=== PATIENT | female | born 1980 | race Caucasian/White ===

== ENCOUNTER 2016-05-02 12:49 | Emergency (ER) | payer OTHER ==
[~2016-05-02] VITALS: Ht 180.3 cm; Wt 72.7 kg
[2016-05-02 12:53] VITALS: BP 99/71; PULSE 106; RESP 18
--- NOTE | 2016-05-02 14:43 | DRSVH ---
PROCEDURE: X-RAY PELVIS W/LAT HIP (LT) ([id number]) INDICATIONS: Pain left hip and groin. TECHNIQUE: AP pelvis with lateral view(s) of the left hip(s). COMPARISON: None. FINDINGS: Bones: No fractures or dislocations. Pelvic ring appears intact. No suspicious bony lesions. Soft tissues: The visualized bowel gas pattern is normal. No suspicious soft tissue calcifications. IMPRESSION: No visualized acute fracture or dislocation. However, if clinical concern and/or pain pe rsist, short interval imaging followup in 7-10 days is recommended, as occult injury cannot be defini tively excluded. Dictated by: Larisa Carvalho M.D. on 05/02/2016 at 14:37 Approved by: Larisa Carvalho M.D. on 05/02/2016 at 14:37
[2016-05-02] MEDS ORDERED: CYCL10TA9 PO (16:08)
--- NOTE | 2016-05-02 16:08 | ED.REPORT ---
HPI-Extremity Problem Lower Date of Service May 02, 2016 ED Provider: Anuj Bowman PA-C Tosha is an otherwise healthy, active 36-year-old female with a chief complaint of left hip pain. She states her left hip pain insidiously began 2 days ago after a moderate exercise routine. Her pain worsened over the course of next day, which she spent at work doing significant amount of walking. Last night the pain kept her from sleeping well and today she feels unable to walk because "it feels like the leg is going to give out." She localizes her pain to her left groin, with radiation down her leg anterior and lateral as well as into her lower back. Denies back pain, saddle anesthesia, bowel/bladder dysfunction. Also denies abdominal pain, urinary symptoms, vomiting, diarrhea. Nursing Notes Stated Complaint: LEFT LEG/HIP PAIN, CANT WALK Chief Complaint: Extremity Trauma Allergies: Coded Allergies: No Known Allergies (Unverified , 05/02/16) Scheduled PRN Cyclobenzaprine (Cyclobenzaprine) 10 Mg Tablet 10 MG PO TID PRN PRN Spasm General Time Seen by MD: 13:37 Chief Complaint Hip injury left Review of Systems General: Denies fever, chills, malaise. HEENT: Denies congestion, headache, sore throat. Respiratory: Denies dyspnea, cough, shortness of breath, wheezing. Cardiovascular: Denies chest pain, palpitations. Gastrointestinal: Denies vomiting, diarrhea, abdominal pain. Genitourinary: Denies frequency, urgency, dysuria, hematuria. Otherwise as noted in HPI. Physical Exam General: Well appearing, well developed, well nourished, no acute distress. Head: Atraumatic, normocephalic. Eyes: No scleral icterus or injection. No discharge. Vision grossly intact. ENT: Voice clear, hearing grossly intact. Respiratory: Regular rate and rhythm. Breath sounds present, clear to auscultation and equal bilaterally. Cardiovascular: Regular rate and rhythm, without murmur, gallop or rub. No pedal edema. Gastrointestinal: Abdomen flat and non-tender without guarding or rebound. Bowel sounds normoactive. Skin: Warm and dry. Back: Normal to inspection, nontender Hip: Full passive range of motion. Pain with range of motion. Neurological: Patient has difficulty bearing weight on the affected limb, gait not assessed.. Hip flexion, knee extension drinks right greater than left, limited effort. Ankle dorsiflexion and plantarflexion strength 5/5 B/L. Patellar and Achilles reflexes present and equal B/L. Sensation to sharp touch intact at medial leg, dorsal foot. . Slightly reduced sensation to sharp touch left lateral foot. Positive straight leg raise, negative cross straight leg raise. Psychological: Alert and oriented. Speech appropriate, linear and logical. Behavior appropriate. Initial Vital Signs Vital Signs (First) Date Time Temp Pulse Resp B/P Pulse Ox O2 Delivery O2 Flow Rate FiO2 05/02/16 12:53 37.2 106 18 99/71 05/02/16 16:18 98 Room Air Initial VS: Reviewed, Vital signs abnormal (mild tachycardia) Discharge & Departure Impression: Primary Impression: Hip pain Laterality: left Qualified Code: M25.552 - Pain in left hip Disposition: Home Discharge Condition All VS Reviewed: Yes Condition: Stable Additional Instructions: Evaluation for hip pain in the emergency department today. X-rays reveal no acute injury to her hip. History and Physical reassuring that this is unlikely to be a dangerous condition of your back. Most likely this is musculoskeletal pain, and treatment is symptomatic. I recommended rest for several days, with no stretching or exercises. I will write a prescription for muscle relaxant.The pain is best treated with 8400 mg of ibuprofen (Advil, Motrin) every 6 hours, or 1000 mg of acetaminophen (Tylenol) every 6 hours. These drugs can be taken at the same time for more severe pain. I also provide referral for primary care follow-up. Please contact them to arrange follow-up in the next week or so if your symptoms are not resolving to consider further investigation and or physical therapy. Return to the emergency Department for any new or worsening symptoms including worsening weakness, numbness or legs, loss of bowel or bladder control. Referrals: Kristi King MD EDSupervising Provider for APC: Bg Herrmann MD Attending Statement I saw and evaluated patient with NAINA Bowman. I supervised. In brief, 5 year hx of L hip pain flares. Extensive physical activity. C/o LLE soreness with weakness d/t soreness. On exam, no effort of LLE presumably d/t pain. No neuro deficits. No back pain or tenderness or red flag symptoms. Neg straight leg raise. No risk factors clot and no LE swelling. Suspect musculoskeletal. xray hip unremarkable. No indication further imaging at this time. Recommend RICE, follow up PMD 2 days if not improved, return if worsening weakness, pain, incontinence, numbness other new/worsening sxs. copies to: Kristi King MD, Seth PA-C May 02, 2016 16:08 Bg Herrmann MD May 02, 2016 16:28
[2016-05-02 16:18] VITALS: BP 112/75; PULSE 81; RESP 16; O2SAT 98
== END 2016-05-02 16:19 | disposition home or self-care (01) ==
LOC: SED 12:49
DX: M25.552 Pain in left hip (principal)